=== PATIENT | female | born 1965 | race Caucasian/White ===

== ENCOUNTER 2022-04-09 15:06 | Outpatient (CLI) | payer BC, SELFPAY ==
--- NOTE | 2022-04-09 15:26 | MM_ITS ---
WS: [id number] BILATERAL 3D TOMOSYNTHESIS DIGITAL SCREENING MAMMOGRAPHY WITH CAD CLINICAL INFORMATION: SCREENING HISTORY: Screening mammogram. No current complaints. COMPARISON: TECHNIQUE: Bilateral CC and MLO views. FINDINGS: Scattered fibroglandular densities bilaterally. Stable dense breast tissue subareolar RIGHT breast un changed since 2016. Incidental benign punctate calcifications. Hazy asymmetry posterior depth LEFT br east measuring 15 mm appears new from 2018 best seen on the LEFT MLO view. Recommend spot compression views and ultrasound for further evaluation. RIGHT breast is unchanged. IMPRESSION: MM/[place] [id number] BI-RADS: 0-Incomplete: Need additional imaging evaluation FOLLOW UP: Need Additional Imaging Recommend LEFT breast diagnostic mammography and ultrasound for further evaluat ion.
== END 2022-04-09 15:07 | disposition home or self-care (01) ==
PROVIDERS: Family Provider Internal Medicine; Visit Provider Internal Medicine
DX: Z12.31 Encounter for screening mammogram for malignant neoplasm of breast (principal); N64.89 Other specified disorders of breast
CPT/HCPCS: 77063; 77067

== ENCOUNTER 2022-05-05 08:03 | Outpatient (CLI) | payer BC, SELFPAY ==
--- NOTE | 2022-05-05 08:06 | MM_ITS ---
WS: [id number] LEFT 3D TOMOSYNTHESIS DIGITAL MAMMOGRAPHY WITH CAD CLINICAL INFORMATION: ABNORMAL MAMMO COMPARISON: April 09, 2022 TECHNIQUE: 3 views of the left breast were obtained. FINDINGS: Scattered fibroglandular densities of the left breast. Hazy asymmetry posterior depth LEFT breast com presses out on the spot compression views today. No suspicious abnormalities. Recommend return to [facility] screening mammography. MM/[id number] IMPRESSION: BI-RADS: 2-Benign FOLLOW UP: 1 Year Follow-up Recommend return to annual screening mammography.
== END 2022-05-05 08:04 | disposition home or self-care (01) ==
LOC: RAD 08:03
PROVIDERS: Family Provider Internal Medicine; Visit Provider Nurse Practitioner Family
DX: R92.8 Other abnormal and inconclusive findings on diagnostic imaging of breast (principal)
CPT/HCPCS: 77061

== ENCOUNTER 2023-11-20 09:44 | Outpatient (CLI) | payer BC, SELFPAY ==
--- NOTE | 2023-11-20 09:45 | MM_ITS ---
WS: [id number] BILATERAL SCREENING DIGITAL TOMOSYNTHESIS MAMMOGRAM WITH CAD HISTORY: SCREENING COMPARISON: None available. Bilateral CC and MLO views with tomosynthesis and synthetic mammography submitted. Computer aided det ection analyzed. Breast composition: There are scattered areas of fibroglandular density. No suspicious masses, microc alcifications or architectural distortion. IMPRESSION: MM/[place] [id number] BI-RADS: 1-Negative FOLLOW UP: 1 Year Follow-up
== END 2023-11-20 09:45 | disposition home or self-care (01) ==
LOC: RAD 09:45
PROVIDERS: Visit Provider Internal Medicine
DX: Z12.31 Encounter for screening mammogram for malignant neoplasm of breast (principal)
CPT/HCPCS: 77063; 77067